=== PATIENT | female | born 1945 | race Caucasian/White ===

== ENCOUNTER → 2024-03-13 09:03 | Outpatient (REF) | payer MEDICARE, SELFPAY ==
[2024-03-13 11:01] LABS: ALT (SGPT) 18 U/L (0-35); AST (SGOT) 30 U/L (14-36); HDL Cholesterol 68 mg/dl; LDL Cholesterol, Calculated 120 mg/dl; Total Cholesterol 212 mg/dl (50-199); Triglyceride 120 mg/dl (10-149); Very Low Density Lipoprotein 24 mg/dl (0-30)
== END ==
LOC: REG 09:03
PROVIDERS: ATTENDING PHYSICIAN Internal Medicine Cardiovascular Disease; FAMILY PHYSICIAN Internal Medicine
DX: I25.10 Atherosclerotic heart disease of native coronary artery without angina pectoris (principal)
CPT/HCPCS: 36415; 80061; 84450; 84460

== ENCOUNTER → 2024-03-20 13:33 | Outpatient (REF) | payer MEDICARE, SELFPAY | LOC: RCS 13:33 | PROVIDERS: ATTENDING PHYSICIAN Internal Medicine Cardiovascular Disease; FAMILY PHYSICIAN Internal Medicine | DX: I25.10 Atherosclerotic heart disease of native coronary artery without angina pectoris (principal); I10 Essential (primary) hypertension; Z95.2 Presence of prosthetic heart valve; I51.7 Cardiomegaly | CPT/HCPCS: 93306 ==

== ENCOUNTER → 2024-04-24 18:00 | Outpatient (REF) | payer MEDICARE, SELFPAY ==
[2024-04-24 19:50] LABS: Urine Albumin Trace (Neg - Trace); Urine Bilirubin Negative (Negative); Urine Character Clear (Clear); Urine Color Yellow; Urine Glucose Negative (Negative); Urine Ketone Negative (Negative); Urine Leukocyte 1+ (Negative); Urine Nitrite Negative (Negative); Urine Occult Blood 4+ (Negative); Urine Specific Gravity 1.005 (<1.030); Urine Urobilinogen Negative (Neg - 1+)
[2024-04-24 20:16] LABS: Urine Bacteria Many (Negative); Urine White Cell 30-40 /HPF (0-5)
== END ==
LOC: CLAB 18:00
PROVIDERS: ATTENDING PHYSICIAN Internal Medicine
DX: R35.0 Frequency of micturition (principal); N39.0 Urinary tract infection, site not specified
CPT/HCPCS: 81003; 81015; 87086; 87088; 87186

== ENCOUNTER → 2024-05-08 18:28 | Outpatient (REF) | payer MEDICARE, SELFPAY ==
[2024-05-08 19:00] LABS: Urine Albumin Negative (Neg - Trace); Urine Bilirubin Negative (Negative); Urine Character Clear (Clear); Urine Color Yellow; Urine Glucose Negative (Negative); Urine Ketone Negative (Negative); Urine Leukocyte Negative (Negative); Urine Nitrite Negative (Negative); Urine Occult Blood Negative (Negative); Urine Urobilinogen Negative (Neg - 1+)
== END ==
LOC: CLAB 18:28
PROVIDERS: ATTENDING PHYSICIAN Internal Medicine
DX: R31.29 Other microscopic hematuria (principal)
CPT/HCPCS: 81003; 87086

== ENCOUNTER → 2024-09-22 12:46 | Outpatient (REF) | payer MEDICARE, SELFPAY ==
[2024-09-22 13:37] LABS: % Basophils 0.6 % (0-2); % Eosinophils 3.2 % (0-6); % Immature Granulocytes 0.3 % (0-0.5); % Lymphocytes 15.3 % (20.5-51.1); % Monocytes 10.2 % (1.7-9.3); % Neutrophils 70.4 % (42.2-75.2); Absolute Eosinophils 0.2 10^3/uL (0-0.7); Absolute Monocytes 0.7 10^3/uL (0.1-0.6); Absolute Neutrophils 4.8 10^3/uL (1.4-6.5); Hematocrit 43.4 % (37.0-47.0); Hemoglobin 13.9 g/dL (12.0-16.0); Mean Corpuscular Hgb 30.3 pg (27.0-31.0); Mean Corpuscular Volume 94.6 fL (81.0-99.0); Mean Platelet Volume 10.9 fL (7.4-10.4); Nucleated Red Blood Cells % 0 %; Platelet Count 303 10^3/uL (130-400); Red Blood Cell Count 4.59 10^6/uL (4.20-5.40); Red Cell Dist. Width 13.3 % (11.5-14.5); White Blood Cell Count 6.8 10^3/uL (4.8-10.8)
[2024-09-22 13:49] LABS: ALT (SGPT) 45 U/L (0-35); AST (SGOT) 51 U/L (14-36); Albumin 4.7 g/dl (3.5-5.0); Alkaline Phosphatase 80 U/L (38-126); Blood Urea Nitrogen 9 mg/dl (7-17); Calcium 9.6 mg/dl (8.4-10.2); Carbon Dioxide 28 mmol/L (22-30); Chloride 98 mmol/L (98-107); Glucose 100 mg/dl (70-99); Potassium 5.7 mmol/L (3.5-5.1); Sodium 134 mmol/L (135-145); Total Bilirubin 0.8 mg/dl (0.2-1.3); eGFR > 60.00
== END ==
LOC: REG 12:46
PROVIDERS: ATTENDING PHYSICIAN Physician Assistant; FAMILY PHYSICIAN Internal Medicine
DX: J18.9 Pneumonia, unspecified organism (principal)
CPT/HCPCS: 36415; 71046; 80053; 85025

== ENCOUNTER → 2024-09-23 09:20 | Outpatient (REF) | payer MEDICARE, SELFPAY | LOC: RCS 09:20 | PROVIDERS: ATTENDING PHYSICIAN Physician Assistant | DX: J18.9 Pneumonia, unspecified organism (principal) | CPT/HCPCS: 93306 ==

== ENCOUNTER → 2024-09-24 16:27 | Outpatient (REF) | payer MEDICARE, SELFPAY | LOC: REG 16:27 | PROVIDERS: ATTENDING PHYSICIAN Internal Medicine Cardiovascular Disease; FAMILY PHYSICIAN Internal Medicine | DX: Z95.3 Presence of xenogenic heart valve (principal); I35.1 Nonrheumatic aortic (valve) insufficiency; J18.9 Pneumonia, unspecified organism | CPT/HCPCS: 36415; 87040 ==

== ENCOUNTER → 2024-09-26 12:59 | Outpatient (REF) | payer MEDICARE, SELFPAY ==
[2024-09-26 13:15] VITALS: BP 194/57; BP_SYST 72
== END ==
LOC: RADI 12:59
PROVIDERS: ATTENDING PHYSICIAN Physician Assistant; FAMILY PHYSICIAN Internal Medicine
DX: J90 Pleural effusion, not elsewhere classified (principal); Z53.8 Procedure and treatment not carried out for other reasons
CPT/HCPCS: 76604

== ENCOUNTER 2024-09-29 07:15 | Day surgery (SDC) | payer MEDICARE, SELFPAY ==
[2024-09-29 07:50] VITALS: BMI 18.2
[2024-09-29 09:18] LABS: Albumin 4.6 g/dl (3.5-5.0); Blood Urea Nitrogen 14 mg/dl (7-17); Calcium 9.3 mg/dl (8.4-10.2); Carbon Dioxide 30 mmol/L (22-30); Chloride 96 mmol/L (98-107); Estimated Creatinine Clearance 56 ml/min; Glucose 107 mg/dl (70-99); Phosphorus 4.1 mg/dl (2.5-4.5); Potassium 4.6 mmol/L (3.5-5.1); Sodium 133 mmol/L (135-145); eGFR > 60.00
== END 2024-09-29 09:45 | disposition home or self-care (01) ==
LOC: CATH 07:15
PROVIDERS: Nurse Practitioner; ATTENDING PHYSICIAN Internal Medicine Cardiovascular Disease; FAMILY PHYSICIAN Internal Medicine
DX: I08.0 Rheumatic disorders of both mitral and aortic valves (principal); Z95.3 Presence of xenogenic heart valve; I11.0 Hypertensive heart disease with heart failure; I50.9 Heart failure, unspecified; Z87.891 Personal history of nicotine dependence; Z79.82 Long term (current) use of aspirin
CPT/HCPCS: 93312; 93325; 93320; 80069; 87040

== ENCOUNTER 2024-10-19 13:39 | Emergency (ER) | payer MEDICARE, SELFPAY ==
[2024-10-19] VITALS (10 sets, daily range): BP systolic 135–206; BP diastolic 46–83; BMI 18.3
[2024-10-19 14:01] LABS: % Basophils 0.4 % (0-2); % Eosinophils 2.6 % (0-6); % Immature Granulocytes 0.3 % (0-0.5); % Lymphocytes 12.2 % (20.5-51.1); % Monocytes 7.5 % (1.7-9.3); Absolute Eosinophils 0.2 10^3/uL (0-0.7); Absolute Lymphocytes 0.9 10^3/uL (1.2-3.4); Absolute Monocytes 0.5 10^3/uL (0.1-0.6); Absolute Neutrophils 5.4 10^3/uL (1.4-6.5); Hematocrit 40.6 % (37.0-47.0); Hemoglobin 13.5 g/dL (12.0-16.0); Mean Corp Hgb Conc. 33.3 g/dL (33.0-37.0); Mean Corpuscular Hgb 31.3 pg (27.0-31.0); Mean Platelet Volume 11.1 fL (7.4-10.4); Nucleated Red Blood Cells % 0 %; Platelet Count 265 10^3/uL (130-400); Red Blood Cell Count 4.32 10^6/uL (4.20-5.40); Red Cell Dist. Width 13.2 % (11.5-14.5)
[2024-10-19 14:19] LABS: ALT (SGPT) 36 U/L (0-35); AST (SGOT) 36 U/L (14-36); Albumin 4.2 g/dl (3.5-5.0); Alkaline Phosphatase 80 U/L (38-126); Blood Urea Nitrogen 9 mg/dl (7-17); Calcium 9.3 mg/dl (8.4-10.2); Carbon Dioxide 29 mmol/L (22-30); Chloride 100 mmol/L (98-107); Glucose 116 mg/dl (70-99); Potassium 4.1 mmol/L (3.5-5.1); Sodium 135 mmol/L (135-145); Total Bilirubin 0.6 mg/dl (0.2-1.3); Total Protein 6.5 g/dl (6.3-8.2); eGFR > 60.00
[2024-10-19 14:30] LABS: Troponin I < 0.012 ng/ml
--- NOTE | 2024-10-19 14:38 | ED.GENMED ---
History of Present Illness
<Sancho Calloway Jr., PA-C - Last Filed: 10/19/24 18:12>
General
Chief Complaint: Chest Pain
Source: patient
Exam Limitations: none
Time Seen by Provider: 10/19/24 14:28
Nursing documentation reviewed up to this point in time: agreed with
History of Present Illness
History of Present Illness:
79-year-old female past medical history of CHF hypertension, previous TAVR, previous aortic dissection repair presenting to the emergency department today with concerns of what she describes as 'twinges' in the left chest associated palpitations.
Mild pain. No significant nausea. Denies any recent illness or fevers.
Past History
<Sancho Calloway Jr., PA-C - Last Filed: 10/19/24 18:12>
Past History
ED Past Medical History: CAD, HTN, Valvular disease () and Other (Thoracic aortic dissection)
ED Past Surgical History: Cardiac (Ascending thoracic aortic aneurysm endovascular stent repair 07/12/[address] Tejeda)
Social History
Tobacco: Non-smoker
Alcohol: Daily
Drug: None
Personal:
Living: with family
Employment: Retired
Family History
Family History: Other (Thoracic aortic dissection, aneurysm. )
Review of Systems
<Sancho Calloway Jr., PA-C - Last Filed: 10/19/24 18:12>
Review of Systems
Allergies reviewed?: Yes
All Other Systems: ROS reviewed and negative except as documented in HPI and ROS
Phy Exam
<Sancho Calloway Jr., PA-C - Last Filed: 10/19/24 18:12>
Physical Exam
Physical Exam:
GENERAL: Alert , in no apparent distress
EYE: pupils equal and reactive
NECK: Supple, no significant adenopathy.
ENT: o/p clr, mmm.
CARDIAC: 2 out of 6 systolic murmur regular rate and rhythm .
LUNGS: Clear breath sounds bilaterally, no acute respiratory distress, no wheezes/rales/rhonchi
ABDOMEN: Soft, without focal tenderness, no r/g, no cvat
NEUROLOGICAL: Alert and oriented, no focal neuro deficits
SKIN: Warm and dry, skin intact.
MUSCULOSKELETAL: No edema, well perfused.
PSYCH: Normal and appropriate interaction.
Scores
<Sancho Calloway Jr., PA-C - Last Filed: 10/19/24 18:12>
Heart Score for Chest Pain Patients
STEMI patient?: No
History: Slightly or Non-Suspicious
ECG: Nonspecific Repolarization
Age: >/= 65 years
Risk Factors: >/= 3 Risk Factors or History of CAD
Troponin: </= Normal Limit
Heart Score for Chest Pain Patients: 5
Heart Score Risk: 20.3% MACE over next 6 weeks
<Gaurav Munoz DO - Last Filed: 10/19/24 22:14>
Heart Score for Chest Pain Patients
Heart Score for Chest Pain Patients: 5
Heart Score Risk: 20.3% MACE over next 6 weeks
Course
<Sancho Calloway Jr., PA-C - Last Filed: 10/19/24 18:12>
Orders/Labs/Results
Orders:
Orders
10/19/24 13:40
Electrocardiogram (*1) Urgent
Reason for Study: Chest Pain
EKG- Treatment ONCE
10/19/24 13:55
Complete Blood Count/With Diff Urgent
Comprehensive Metabolic Panel Urgent
Troponin I Urgent
10/19/24 14:37
CT Chest/abd/pelvis Angio W/wo Urgent
Comment:
Reason For Exam: hx aortic dissection w repair, CP/palps
Abnormal Lab Results
10/19/24
13:55
MCH 31.3 H pg
(27.0-31.0)
MPV 11.1 H fL
(7.4-10.4)
Absolute Lymphs (auto) 0.9 L 10^3/uL
(1.2-3.4)
Neutrophils % 77.0 H %
(42.2-75.2)
Lymphocytes % 12.2 L %
(20.5-51.1)
Glucose 116 H mg/dl
(70-99)
ALT 36 H U/L
(0-35)
10/19/24 13:55
10/19/24 13:55
Vital Signs
Initial and Last Documented VS:
Initial Vital Signs
Temp Pulse Resp BP Pulse Ox
98.4 F 75 18 135/83 98
10/19/24 13:46 10/19/24 13:46 10/19/24 13:46 10/19/24 13:46 10/19/24 13:46
Last Documented Vital Signs
Temp Pulse Resp BP Pulse Ox
97.6 F 68 16 202/59 98
10/19/24 14:51 10/19/24 17:08 10/19/24 17:08 10/19/24 18:32 10/19/24 18:33
<Gaurav Munoz, DO - Last Filed: 10/19/24 22:14>
Orders/Labs/Results
Orders:
Orders
10/19/24 13:40
Electrocardiogram (*1) Urgent
Reason for Study: Chest Pain
EKG- Treatment ONCE
10/19/24 13:55
Complete Blood Count/With Diff Urgent
Comprehensive Metabolic Panel Urgent
Troponin I Urgent
10/19/24 14:37
CT Chest/abd/pelvis Angio W/wo Urgent
Comment:
Reason For Exam: hx aortic dissection w repair, CP/palps
Abnormal Lab Results
10/19/24
13:55
MCH 31.3 H pg
(27.0-31.0)
MPV 11.1 H fL
(7.4-10.4)
Absolute Lymphs (auto) 0.9 L 10^3/uL
(1.2-3.4)
Neutrophils % 77.0 H %
(42.2-75.2)
Lymphocytes % 12.2 L %
(20.5-51.1)
Glucose 116 H mg/dl
(70-99)
ALT 36 H U/L
(0-35)
10/19/24 13:55
10/19/24 13:55
Vital Signs
Initial and Last Documented VS:
Initial Vital Signs
Temp Pulse Resp BP Pulse Ox
98.4 F 75 18 135/83 98
10/19/24 13:46 10/19/24 13:46 10/19/24 13:46 10/19/24 13:46 10/19/24 13:46
Last Documented Vital Signs
Temp Pulse Resp BP Pulse Ox
97.6 F 68 16 202/59 98
10/19/24 14:51 10/19/24 17:08 10/19/24 17:08 10/19/24 18:32 10/19/24 18:33
<Sancho Calloway Jr., PA-C - Last Filed: 10/19/24 18:12>
MDM/Problems Addressed
MDM/Problems Addressed:
79-year-old female presenting to the emergency department today with concerns of funny sensation to her chest starting yesterday somewhat ongoing today. Here troponin level normal CT without emergent findings patient well-appearing no acute
distress. Patient additionally assessed by attending physician recommending outpatient follow-up. Return precautions given.
<Gaurav Munoz DO - Last Filed: 10/19/24 22:14>
MDM/Problems Addressed
Chronic conditions affecting care: HTN and Cardiomyopathy
Acute Exacerbation and/or Progression of Chronic Illness: HTN and Cardiomyopathy
<Sancho Calloway Jr., PA-C - Last Filed: 10/19/24 18:12>
*Critical Care Note
Total Time (30-74mins, 75-104mins- exclusive of procedures): Not Applicable
ED Attending Note
<Sancho Calloway Jr., PA-C - Last Filed: 10/19/24 18:12>
-
Portions of this chart may have been created with voice recognition software.� Occasional wrong word or��sound alike� substitutions may have occurred due to the inherent limitations of voice recognition software.
<Gaurav Munoz, - Last Filed: 10/19/24 22:14>
ED Attending Note
Patient seen and examined by attending physician: Yes
ED Attending Note:
I reviewed and agree with history and treatment plan by Calvin Calloway PA-C. My exam revealed 79-year-old female in no acute distress. Systolic ejection murmur 09/11. doubt ACS or PE.
Discharge Plan
Departure
Patient Disposition: Home (Routine Discharge)
Date of Disposition: 10/19/24
Time of Disposition: 18:10
Patient with high blood pressure during this ER visit?: No
Condition: Good
Covid-19: Not Applicable
Discharge Problem:
Chest pain
Instructions: Chest Pain CBC Follow Up
Prescriptions:
No Action
aspirin 81 MG tablet
81 mg PO DAILY
carvedilol 6.25 MG tablet
3.125 - 6.25 mg PO BID PRN (Reason: for SBP > 140)
Patient Comments:
with 12.5mg = 18.75mg
Rx Instructions:
PRN taken when BP is elevated
carvedilol 12.5 MG tablet
12.5 mg PO BID
Patient Comments:
evening dose with 6.25mg = 18.75mg
ascorbic acid (vitamin C) [Vitamin C] 500 MG tablet
500 mg PO DAILY
cholecalciferol (vitamin D3) [Vitamin D3] 25 mcg (1,000 unit) Tablet
25 mcg PO DAILY
multivitamin with folic acid [Tab-A-Luz Elena] 1 TABLET tablet
1 tab PO DAILY
Referrals:
Byron Briseno MD [Family Provider] -
Activity Restrictions/Additional Instructions:
You came to the emergency department today with concerns of intermittent chest discomfort. Here you had a reassuring assessment. Blood pressure was somewhat elevated while here please keep a close eye on this and follow-up closely with cardiology.
Return for any worsening, new or concerning symptoms.
Interventions
Interventions:
*Risk Screen - Suicide Last Done: 10/19/24 13:46
*General Assessment Last Done: 10/19/24 13:46
*Neglect/Abuse Screening Last Done: 10/19/24 13:46
*ED- Fall Risk Assessment Last Done: 10/19/24 14:51
*ED COVID-19 Vaccine History Last Done: 10/19/24 14:51
*Nursing Disposition Last Done: 10/19/24 18:36
ED- Cardiac Assessment Last Done: 10/19/24 14:51
Discharge Date and Time
Discharge Date/Time: 10/19/24 18:37
Print Language: RWANDAN
--- NOTE | 2024-10-19 14:56 | EDRN ---
the pt is hypertensive, Ed Brodie TAPIA was notified
--- NOTE | 2024-10-19 18:05 | EDRN ---
Dr. Munoz currently at the pts bedside
== END 2024-10-19 18:37 | disposition home or self-care (01) ==
LOC: EMR 13:39
PROVIDERS: Emergency Medicine; EMERGENCY PHYSICIAN Emergency Medicine; FAMILY PHYSICIAN Internal Medicine
DX: R07.9 Chest pain, unspecified (principal); I11.0 Hypertensive heart disease with heart failure; I50.9 Heart failure, unspecified; I42.9 Cardiomyopathy, unspecified; I25.10 Atherosclerotic heart disease of native coronary artery without angina pectoris; Z95.2 Presence of prosthetic heart valve
CPT/HCPCS: 99284; 71275; 74174; 80053; 84484; 85025; 93005; Q9967

== ENCOUNTER → 2024-10-28 14:46 | Outpatient (REF) | payer MEDICARE, SELFPAY ==
[2024-10-28 16:22] LABS: Albumin 4.9 g/dl (3.5-5.0); Blood Urea Nitrogen 12 mg/dl (7-17); Calcium 9.5 mg/dl (8.4-10.2); Carbon Dioxide 33 mmol/L (22-30); Chloride 100 mmol/L (98-107); Glucose 82 mg/dl (70-99); Phosphorus 4.2 mg/dl (2.5-4.5); Potassium 4.6 mmol/L (3.5-5.1); Sodium 139 mmol/L (135-145); eGFR > 60.00
[2024-10-28 16:30] LABS: NT-proBNP 6010 pg/ml
== END ==
LOC: REG 14:46
PROVIDERS: ATTENDING PHYSICIAN Obstetrics & Gynecology; FAMILY PHYSICIAN Internal Medicine
DX: I50.9 Heart failure, unspecified (principal)
CPT/HCPCS: 36415; 80069; 83880